=== PATIENT | female | born 1980 | race Caucasian/White ===

== ENCOUNTER 2021-03-15 18:46 | Emergency (ER) | payer MEDICAID ==
[~2021-03-15] VITALS: Ht 170 cm; Wt 87.6 kg
--- OUTSIDE RECORDS SUMMARY | 2021-03-15 18:52 | XMS REPORT | Clinical Summary ---
Author Author [facility] Organization [facility] Address Unknown Phone Unavailable Care Team Providers Care Supervisor [employer] Good[employer] Name Role Phone MiguelStarr huber REBECCA PCP Source Comments Some departments are not documenting in the electronic medical record. If you d o not see the information that you expected, contact Release of Information in [facility] [employer] Information Management department at [phone] for further assistan ce in locating additional records.[facility] Allergies Comments Active Allergy Reactions Severity Noted Date Throat swelling, tingling, bones and back hurts Sumatriptan Succinate SEE COMMENTS, High 09/18/19 20 ANGIOEDEMA Throat swelling, tingling, bones and back hurts Topiramate ANGIOEDEMA High 09/18/2019 Medications End Date Status Medication Sig Dispensed Refills Start Date Active CHANTIX STARTING MONTH TAKE 0 02 BOX 0.5 mg (11)- 1 mg DIRECTED PER 0 (42) tablet PACKAGE LABEL Active HYDROcodone/acetaminophen TAKE ONE OR 0 08/16 (NORCO) 5/325 mg tablet TWO TABLETS 0 BY MOUTH EVERY EIGHT HOURS NEEDED Active PROTONIX 20 mg tablet as Needed. 0 07/19/19 2 0 Active busPIRone (BUSPAR) 15 mg TAKE 1 TABLET 0 12/10 tablet BY MOUTH TWO 0 TIMES A DAY Active VRAYLAR 1.5 mg cap TAKE 1 0 CAPSULE BY 0 MOUTH ONCE DAILY AT BEDTIME Active mirtazapine (REMERON) 15 0 mg tablet 0 Active REXULTI 1 mg tablet Take 1.5 mg 0 by mouth 1 daily. Active indomethacin (INDOCIN) 50 Take one 60 capsule 11 mg capsule capsule by 1 mouth twice daily as needed. Active Problems No known active problems Immunizations Name Administration Dates Next Due Flu Vaccine =>3 YO 07/01/2019 (Historical) Surgical History Surgery Date Site/Laterality Comments BREAST AUGMENTATION Social History Date Tobacco Use Types Packs/Day Years Used Current Every Day Smoker 0.5 Smokeless Tobacco: Never Used Tobacco Cessation: Ready to Quit: Yes Comments: quitting soon with Chantix Comments Alcohol Use Standard Drinks/Week Yes 0 (1 standard drink = 0.6 o z pure alcohol) Alcohol Habits Answer Date Recorded How often do you have a drink containing alcohol? No t asked How many drinks containing alcohol do you have on 1 or 2 09/18/2019 a typical day when you are drinking? How often do you have six or more drinks on one Not asked occasion? Comment: Not asked Sex Assigned at Date Recorded Not on file Last Filed Vital Signs Reading Time Taken Comments Vital Sign - - Blood Pressure - - Pulse - - Temperature - - Respiratory Rate - - Oxygen Saturation - - Inhaled Oxygen Concentration 70.8 kg (156 lb) 09/18/2019 1:52 PM CDT Weight 170.2 cm (5' 7") 09/18/2019 1:52 PM CDT Height 24.43 09/18/2019 1:52 PM CDT Body Mass Index Plan of Treatment Health Maintenance Due Date Last Done Comments HIV SCREENING 1996 DTAP/TDAP VACCINES ( - 07/15/1999 Tdap) HEPATITIS C SCREENING 07/15/1999 PHYSICAL (COMPREHENSIVE) 07/15/1999 EXAM CERVICAL CANCER SCREENING 2002 INFLUENZA VACCINE 11/15/2020 07/01/2019 Results Not on filefrom Last 3 Months Insurance Type Payer Benefit Subscriber ID Effective Phone Address Plan / Dates Group Medicaid [facility] MEDICA[facility] [id number] 2019-P [address] [facility] [address] [place] [address] [phone] Advance Directives Patient Supervisor [employer] Explanation Type Date Recorded Advance Directive/DPOA Care Teams Start Date End Date Supervisor Long Goods Relationship Specialty 09/13/19 Starr Sharma ARNP PCP - General Family [id number] [place] [address]
[2021-03-15] MEDS ORDERED: CYCLOBENZAPRINE 10 MG (FLEXERIL) TAB PO STA (19:12)
--- NOTE | 2021-03-15 19:12 | ED Upper Extremity ---
General Chief Complaint: Upper Extremity Stated Complaint: RT SHOULDER PAIN Nursing Triage Note: Pt c/o right shoulder pain x 3 days. Denies injury or trauma but stated "I'm not sure if I slept on it weird." Pt reports taking one 5mg tab of Vicodin at 0700. Denies numbness or tingling to extremity. 2+ bilat radial pulse. Source: patient Exam Limitations: no limitations History of Present Illness Date Seen by Provider: Mar 15, 2021 Time Seen by Provider: 18:50 Initial Comments 40-year-old female with no significant past medical history coming in due to neck pain radiating to the right shoulder. Started roughly 3 days ago. There is no trauma associated with this. Never has had pain like this before. Is a throbbing pain that is constant, worse with movement of her neck. Denies any weakness or numbness. Tried taking her hydrocodone at home which was not helpful, now she is out of that medication. LMP was 2 weeks ago. Otherwise denying any other acute complaints Allergies and Home Medications Allergies Coded Allergies: No Known Drug Allergies (Unverified , 03/15/21) Patient Home Medication List Home Medication List Reviewed: Yes Cyclobenzaprine HCl (Cyclobenzaprine HCl) 10 Mg Tablet, 10 MG PO Q8H PRN for S PASMS Prescribed by: ANT POP on 03/15/211919 Gabapentin (Gabapentin) 100 Mg Capsule, 300 MG PO Q8H Prescribed by: ANT POP on 03/15/211919 Review of Systems Constitutional: No chills, No fever EENTM: No blurred vision Respiratory: no symptoms reported Cardiovascular: no symptoms reported Gastrointestinal: no symptoms reported Genitourinary: no symptoms reported Musculoskeletal: joint pain Skin: no symptoms reported Psychiatric/Neurological: No Symptoms Reported All Other Systems Reviewed Negative Unless Noted: Yes Past Yoetnnr-Hinjas-Pbwwyf Hx Patient Social History Tobacco Use?: Yes Tobacco type used: Cigarettes Smoking Status: Current Everyday Smoker Use of E-Cig and/or Vaping dev: No Substance use?: No Alcohol Use?: Yes Alcohol Frequency: Several times a month Pt feels they are or have been: No Immunizations Up To Date Influenza Vaccine Up-to-Date: No; Not Current First/Initial COVID19 Vaccinat: denies Physical Exam Vital Signs Vital Signs - First Documented 03/15/21 18:58 Temp 35.8 Pulse 96 Resp 17 B/P (MAP) 156/100 (118) Pulse Ox 97 O2 Delivery Room Air Capillary Refill : Less Than 3 Seconds Height, Weight, BMI Height: '" Weight: lbs. oz. kg; 30.00 BMI Method: General Appearance: WD/WN, no apparent distress HEENT: PERRL/EOMI, normal ENT inspection, pharynx normal Neck: supple, normal inspection, other (Pain on the right lateral aspect of the cervical spine when she turns her head right and leans back, tender along the musculature of the right lateral cervical spine, no midline cervical tenderness) Cardiovascular: regular rate, rhythm, no edema, no murmur Respiratory: chest non-tender, lungs clear, normal breath sounds, no respiratory distress, no accessory muscle use Gastrointestinal: normal bowel sounds, non tender, soft; No distended, No guarding Back: normal inspection, no vertebral tenderness Shoulder: normal inspection, non-tender, no evidence of injury, normal ROM Elbow/Forearm: normal inspection, non-tender, no evidence of injury, normal ROM Neurologic/Tendon: normal sensation, normal motor functions, normal tendon functions Neurologic/Psychiatric: no motor/sensory deficits, alert, normal mood/affect Skin: normal color, warm/dry Lymphatic: no adenopathy Progress/Results/Core Measures Results/Orders My Orders Orders - ANT POP MD Cervical Spine 3 View Or Less (03/15/21 19:12) Ketorolac Injection (Toradol Injection) (03/15/21 19:15) Dexamethasone Injection (Decadron Injec (03/15/21 19:15) Cyclobenzaprine Tablet (Flexeril Tablet) (03/15/21 19:12) Gabapentin Capsule/Tablet (Neurontin Cap (03/15/21 19:15) Medications Given in ED Current Medications Medications Dose Ordered Sig/Yogi Route Start Time Stop Time Status Last Admin Dose Admin Dexamethasone Sodium Phosphate 8 mg ONCE ONCE IM 03/15/21 19:15 03/15/21 19:16 DC 03/15/21 19:22 8 MG Gabapentin 300 mg ONCE ONCE PO 03/15/21 19:15 03/15/21 19:16 DC 03/15/21 19:21 300 MG Ketorolac Tromethamine 15 mg ONCE ONCE IM 03/15/21 19:15 03/15/21 19:16 DC 03/15/21 19:20 15 MG Vital Signs/I&O 03/15/21 18:58 Temp 35.8 Pulse 96 Resp 17 B/P (MAP) 156/100 (118) Pulse Ox 97 O2 Delivery Room Air Blood Pressure Mean: 118 Progress Progress Note : Progress Note 40-year-old female with above history coming in with right shoulder pain. ABCs were intact and vitals were stable on presentation. Physical exam with tenderness on the right lateral spine of her cervical region more in the musculature. Neurovascularly intact otherwise. Shoulder exam is normal, and I believe her pain is likely coming from her cervical spine, likely some type of pinched nerve. No trauma so low suspicion for fracture. Given IM injection of Toradol as well as Decadron. Also given a muscle relaxer. XR cervical spine without any fracture or dislocation on my interpretation. I believe she is stable for discharge with outpatient follow-up. Her mother is with her, she says she has an orthopedic doctor that the patient can see. She should follow- up with that person within the next week or so. She was then sent home with strict return precautions. Diagnostic Imaging Diagonstic Imaging: Xray Plain Films/CT/US/NM/MRI: c-spine Comments [facility], [place] NAME: ENRIQUE JIMENEZ [facility] REC#: [id number] PT STATUS: REG ER : 1980 PHYSICIAN: ANT POP MD ADMIT DATE: 03/15/21/ER FS Draft Date of Exam:03/15/21 CERVICAL SPINE 3 VIEW OR LESS INDICATION: Neck and right shoulder pain Cervical spine AP and lateral views of the cervical spine show mild degenerative disc change at C5-C6. Other disc spaces are normal. Alignment is normal. There are no fractures. IMPRESSION: Minimal degenerative disc changes at C5-C6. No acute abnormalities seen. Dictated on workstation # [id number] Dict: 03/15/211933 Trans: 03/15/211943 [facility] [id number] Interpreted by: JIMMY MACK MD Electronically signed by: Departure Impression Primary Impression: Neck pain Disposition: 01 HOME, SELF-CARE Condition: Stable Departure-Patient Inst. Decision time for Depature: 19:40 Referrals: SARAH WETZEL (PCP/Family) Primary Care Physician Patient Instructions: Neck Pain ED Add. Discharge Instructions: You are seen in the emergency department for neck pain that goes into your right shoulder and down your arm. This is likely a pinched nerve and muscle spasm. I have increased your gabapentin for the next couple of weeks, do not take your original prescription until you run out of this 1. I have also written for a muscle relaxer. Take 600 mg of ibuprofen every 6 hours as well. Please follow- up with an orthopedic doctor, especially if you are continuing to have pain over the next week. Scripts Gabapentin (Gabapentin) 100 Mg Capsule 300 MG PO Q8H for Neuropathic pain for 7 Days, #63 CAP Prov: ANT POP MD 03/15/21 Cyclobenzaprine HCl (Cyclobenzaprine HCl) 10 Mg Tablet 10 MG PO Q8H PRN for SPASMS for 5 Days, #15 TAB 0 Refills Prov: ANT POP MD 03/15/21 ANT POP MD Mar 15, 2021 19:12
[2021-03-15] MEDS ORDERED: KETOROLAC 30 MG/ML VIAL IM ONE (19:15)
[2021-03-15] MEDS ORDERED: GABAPENTIN 100 MG (NEURONTIN) CAP PO ONE (19:15)
[2021-03-15] MEDS ORDERED: CYCL10TA25 PO (19:20)
[2021-03-15] MEDS ORDERED: GABA-486 PO (19:20)
--- NOTE | 2021-03-15 19:45 | Diagnostic Imaging Report ---
INDICATION: Neck and right shoulder pain Cervical spine AP and lateral views of the cervical spine show mild degenerative disc change at C5-C6. Other disc spaces are normal. Alignment is normal. There are no fractures. IMPRESSION: Minimal degenerative disc changes at C5-C6. No acute abnormalities seen. Dictated by: Dictated on workstation # [id number]
[2021-03-15 20:00] VITALS: BP 140/85
== END 2021-03-15 20:00 | disposition home or self-care (01) ==
LOC: ER FS 18:48
DX: M54.2 Cervicalgia (principal); F17.210 Nicotine dependence, cigarettes, uncomplicated
CPT/HCPCS: 72040

== ENCOUNTER 2021-12-09 05:29 | Outpatient (CLI) | payer OTHER, MEDICAID ==
[~2021-12-09] VITALS: Ht 170.2 cm; Wt 81.7 kg
[~2021-12-09 05:29] MED LIST: CYCL10TA25 PO; GABA-486 PO
[2021-12-09] MEDS ORDERED: BUSP30TA2 PO (16:40)
[2021-12-09] MEDS ORDERED: ACHD5005 PO (16:40)
[2021-12-09] MEDS ORDERED: PANT20TA2 PO (16:40)
== END 2021-12-09 17:02 ==
LOC: PREOP 05:29
PROVIDERS: ATTEND Surgery
DX: Z01.818 Encounter for other preprocedural examination (principal); K40.90 Unilateral inguinal hernia, without obstruction or gangrene, not specified as recurrent

== ENCOUNTER 2021-12-16 06:06 | Day surgery (SDC) | payer OTHER, MEDICAID ==
[2021-12-16] VITALS (11 sets, daily range): BP systolic 93–134; BP diastolic 55–96
[~2021-12-16] VITALS: Ht 170.2 cm; Wt 82.0 kg
[~2021-12-16 06:06] MED LIST changes: +ACHD5005 PO; +BUSP30TA2 PO; +PANT20TA2 PO
[2021-12-16] MEDS ORDERED: ceFAZolin 2 GM IV Premixed 50 ML IV ONE (06:30)
[2021-12-16] MEDS ORDERED: MIDAZOLAM 2 MG/2 ML (VERSED) VIAL ONE ×2 (06:44→07:19)
[2021-12-16] MEDS ORDERED: MIDAZOLAM 2 MG/2 ML (VERSED) VIAL IVP ONE (06:45)
[2021-12-16] MEDS: LACTATED RINGERS 1,000 ML IV PRN ×2 (06:45→09:10)
[2021-12-16] MEDS ORDERED: LIDOCAINE/EPI 2% 1:200,00 (XYLOCAINE) 20 ML VIAL ONE (06:55)
[2021-12-16] MEDS ORDERED: proPOfol 200 MG/20 ML (DIPRIVAN) VIAL IV ONE (07:19)
[2021-12-16] MEDS ORDERED: LIDOCAINE PF 1% 5 ML (XYLOCAINE) AMP ONE (07:19)
[2021-12-16] MEDS ORDERED: fentaNYL INJ 100 MCG/2 ML AMP ONE (07:19)
[2021-12-16] MEDS ORDERED: ROCURONIUM 50 MG/5 ML (ZEMURON) VIAL IV ONE (07:19)
[2021-12-16] MEDS ORDERED: ONDANSETRON 4 MG/2 ML (SDV) Z0FRAN ONE (07:19)
[2021-12-16] MEDS ORDERED: LIDOCAINE/EPI 2% 1:200,00 (XYLOCAINE) 10 ML VIAL INJ ONE (07:26)
--- NOTE | 2021-12-16 07:39 | Progress Note-Pre Operative ---
Pre-Operative Progress Note Date of Available H&P: Nov 22, 2021 Date H&P Reviewed: Dec 16, 2021 Time H&P Reviewed: 07:30 History & Physical: H&P Reviewed, Patient Examed, No changes noted Pre-Operative Diagnosis: left inguinal hernia GILBERTO GALINDO DO Dec 16, 2021 07:39
[2021-12-16] MEDS ORDERED: SEVOFLURANE (ULTANE) 15 ML INHAL SOLN ONE (09:40)
[2021-12-16] MEDS ORDERED: DOCU-143 PO (09:52)
[2021-12-16] MEDS ORDERED: ACHD5005 PO (09:52)
--- NOTE | 2021-12-16 09:53 | Anesthesia-General Post-Op ---
General Patient Condition Mental Status/LOC: Same as Preop Cardiovascular: Satisfactory Nausea/Vomiting: Absent Respiratory: Satisfactory Pain: Controlled Complications: Absent Post Op Complications Complications None Follow Up Care/Instructions Patient Instructions None needed. Anesthesia/Patient Condition Patient Condition Patient is doing well, no complaints, stable vital signs, no apparent adverse anesthesia problems. No complications reported per nursing. ALTA PHOENIX CRNA Dec 16, 2021 09:53
--- NOTE | 2021-12-16 09:53 | Discharge Inst-Simple/Standard ---
Discharge Inst-Standard Discharge Medications New, Converted or Re-Newed RX: Transmitted to Pharmacy Patient Instructions/Follow Up Plan of Care/Instructions/FU: 2 weeks capri Activity as Tolerated: No Discharge Diet: Regular Diet Other Inst to Patient Follow up Appt: Make appointment for 2 week. Instructions: No lifting greater than 10 pounds. No strenuous activity. May shower in 24 hours, no tub bath or soaking. Use incentive spirometer at home as directed. No Smoking Skin/Wound Care: You have special glue over your incision that will fall off on it's own. Symptoms to Report: Appetite Changes, Extremity Discoloration, Numbness/Tingling, Swelling Increased, Bleeding Excessive, Eyesight Changes, Pain Increased, Urine Color Change, Constipation(Persistent), Fever over 101 degree F, Pain/Pressure in chest, Urinating Difficulty, Cough Up/Vomit Blood, Heart Beat Irreg/Pounding, Pain/Pressure in jaw, Vaginal Bleeding Increase, Cramps in feet or legs, Lightheadedness, Pain/Pressure in shoulder, Diarrhea(Persistent), Memory Changes Suddenly, Questions/Concerns, Weight gain consecutive days, Dizziness/Fainting, Nausea/Vomiting, Shortness of Breath, Weight gain over 2 pounds If questions or concerns contact your physician Or seek help at emergency department. GILBERTO GALINDO DO Dec 16, 2021 09:53
--- NOTE | 2021-12-16 09:54 | Progress Note-Post Operative ---
Post-Operative Progess Note Surgeon (s)/Brick [employer] Mason (s) Surgeon GILBERTO GALINDO DO Brick And Block Mason: Dr. Kauffman Pre-Operative Diagnosis left inguinal hernia Post-Operative Diagnosis incarcerated left inguinal hernia direct Procedure & Operative Findings Date of Procedure 12/16/21 Procedure Performed/Findings robotic left incarcerated inguinal hernia repair c mesh Anesthesia Type general Estimated Blood Loss Estimated blood loss (mL): minimal Specimens/Packing Specimens Removed na GILBERTO GALINDO DO Dec 16, 2021 09:54
[2021-12-16] MEDS ORDERED: morphine INJ 10 MG/ML 1ML (SYR OR VIAL) IVP ONE (10:00)
[2021-12-16] MEDS ORDERED: MEPERIDINE (DEMEROL) INJ 50 MG/ML IVP ONE (10:00)
[2021-12-16] MEDS ORDERED: ONDANSETRON 4 MG/2 ML (SDV) Z0FRAN IVP PRN (10:00)
[2021-12-16] MEDS ORDERED: HYDROmorphone 2 MG/ML VIAL (DILAUDID) IV ONE (10:00)
[2021-12-16] MEDS ORDERED: PROMETHAZINE INJ 25 MG/ML (PHENERGAN) AMP IVP ONE (10:00)
[2021-12-16] MEDS ORDERED: HYDROcodone/APAP 5 MG/325 MG (LORTAB) TAB ONE (11:37)
[2021-12-16] MEDS ORDERED: HYDROcodone/APAP 5 MG/325 MG (LORTAB) TAB PO ONE (11:45)
--- NOTE | 2021-12-17 06:41 | OPERATIVE REPORT ---
DATE OF SERVICE: 12/16/2021 PREOPERATIVE DIAGNOSIS: Left inguinal hernia. POSTOPERATIVE DIAGNOSIS: Incarcerated direct left inguinal hernia. SURGEON: Severino Romero DO CONTRACTING MANAGER: Dr. Kauffman, assisted in retraction, dissection and closure. ANESTHESIA: General. ESTIMATED BLOOD LOSS: Minimal. COMPLICATIONS: None. INDICATIONS: The patient is a 41-year-old female, who has a left inguinal hernia, which has been causing her discomfort. She understands risks and benefits of procedure and wished to proceed. Consent was signed in the chart. DESCRIPTION OF PROCEDURE: The patient was taken to the operating suite, was prepped and draped in sterile fashion. Timeout was performed. A #11 blade scalpel was used to make an incision above the umbilicus. Cautery was used to dissect down to the fascia, which was then scored and opened and the abdomen was entered. An 0 Vicryl was placed in a tnzygi-or-caxkj fashion for closure at the end of the case. The robles trocar was inserted and pneumoperitoneum was achieved. Under direct visualization of the laparoscope, an 8 mm trocar was placed lateral on both lateral positions, one on the right and one on the left. The robot was then docked noting a left inguinal hernia that was a direct defect. The peritoneum was then taken down in a cephalad to caudad fashion, taking down to the Mainor's ligament, which was then identified and blunt dissection was continued to mobilize both slightly medial and then laterally getting approximately 2 cm below the Mainor's ligament. A direct defect is present. Fat was incarcerated through this area, very difficult to evacuate the hernia contents. She continued to bluntly dissect around the defect and also had to have external pressure applied in order to get this to reduce. Once reduced, the peritoneum was then continued to be taken down from the Mainor's ligament laterally as well for mesh placement. An extra-large mesh was then inserted and secured with 3-0 Vicryl to Mainor's ligament and also a stay stitch was placed laterally on the upper portion of the mesh. Adequate coverage of the defect was present. The peritoneum was then closed using a 3- 0 V-Loc suture. This is with a pressure taken down. The abdomen was then desufflated, the trocars were removed. The 0 Vicryl placed at the beginning of the case was then tied closing 12 mm fascial defect and the skin was then closed using 4-0 Monocryl in subcuticular fashion. The abdomen was then washed and dried and sterile bandages were applied. The patient tolerated procedure well without any complications. She was taken to recovery room in stable condition. Job ID: [id number] DocumentID: [id number] Dictated Date: 12/16/2021 23:47:01 Speech Teacher Date: 12/17/2021 06:40:11 Dictated By: DO DONG MARQUEZ
== END 2021-12-16 12:25 | disposition home or self-care (01) ==
LOC: SDC 06:06
PROVIDERS: ATTEND Surgery
DX: K40.30 Unilateral inguinal hernia, with obstruction, without gangrene, not specified as recurrent (principal); K21.9 Gastro-esophageal reflux disease without esophagitis; F17.210 Nicotine dependence, cigarettes, uncomplicated; Z79.899 Other long term (current) drug therapy; Z28.310 Unvaccinated for COVID-19
CPT/HCPCS: 49650; 84703; 87081; C1781